=== PATIENT | female | born 1975 | race Caucasian/White ===

== ENCOUNTER 2023-04-12 18:07 | Emergency (ER) | payer BC ==
[2023-04-12] MEDS ORDERED: IBUPROFEN 400 MG TAB ONE (18:54)
[2023-04-12] MEDS ORDERED: ACETAMINOPHEN 325 MG TABLET ONE (18:54)
--- NOTE | 2023-04-12 19:42 | RAD REPORT ---
EXAM DESCRIPTION: US - Extremity Venous Uni Ltd - 04/12/2023 7:35 pm CLINICAL HISTORY: Pain;Swelling Leg swelling and edema. COMPARISON: <Comparisons> FINDINGS: Left lower extremity venous system was interrogated with Doppler technique. Normal flow, c ompressibility and augmentation was noted. There is no DVT present. IMPRESSION: No evidence of left lower extremity deep venous thrombosis.
--- NOTE | 2023-04-12 20:45 | EDPHYS ---
Physician Documentation [facility] Name: Jesusita Davidson Age: 47 yrs Sex: Female : 1975 Arrival Date: 04/12/2023 Time: 18:07 Bed DIS3 Private MD: Prem [facility] ED Physician Shiva Perez HPI: 04/12 18:45 This 47 yrs old Female presents to ER via Ambulatory with complaints of Leg Pain, Leg cp Swelling. 18:45 The patient presents with pain, that is acute. The complaints affect the left calf. cp Context: resulted from an unknown cause, the patient can fully bear weight, the patient is able to ambulate, with mild difficulty, Problem is a result from a previous injury: No. Onset: The symptoms/episode began/occurred last night. Associated signs and symptoms: Pertinent positives: calf tenderness, swelling, Pertinent negatives fever, shortness of breath, fever. Severity of symptoms: in the emergency department the symptoms are unchanged, despite home interventions. 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 - Social history:: Smoking status: Patient denies any tobacco usage or history of. ROS: 18:50 Constitutional: Negative for body aches, chills, fever, poor PO intake. cp 18:50 Eyes: Negative for injury, pain, redness, and discharge. cp 18:50 ENT: Negative for drainage from ear(s), ear pain, sore throat, difficulty swallowing, difficulty handling secretions. 18:50 Cardiovascular: Negative for chest pain, edema, palpitations. 18:50 Respiratory: Negative for cough, shortness of breath, wheezing. 18:50 Abdomen/GI: Negative for abdominal pain, nausea, vomiting, and diarrhea. 18:50 MS/extremity: Positive for pain, tenderness, of the left calf, Negative for injury or acute deformity, paresthesias. 18:50 Skin: Negative for rash. 18:50 All other systems are negative. Exam: 19:00 Head/Face: Normocephalic, atraumatic. 19:00 Constitutional: The patient appears in no acute distress, alert, awake, non-diaphoretic, non-toxic, well developed, well nourished. 19:00 Eyes: Periorbital structures: appear normal, Conjunctiva: normal, no exudate, no injection, Sclera: no appreciated abnormality, Lids and lashes: appear normal, bilaterally. 19:00 Chest/axilla: Inspection: normal. 19:00 Cardiovascular: Rate: normal, Rhythm: regular, Edema: is not appreciated, JVD: is not appreciated. 19:00 Respiratory: the patient does not display signs of respiratory distress, Respirations: normal, no use of accessory muscles, no retractions, labored breathing, is not present, Breath sounds: are clear throughout, no decreased breath sounds, no stridor, no wheezing. 19:00 Musculoskeletal/extremity: Extremities: grossly normal except: noted in the left calf: pain, tenderness, mild swelling, There is no evidence of ecchymosis, erythema, Perfusion: the extremity is normally perfused throughout, Sensation intact. 19:00 Back: pain, is absent, ROM is normal. Vital Signs: 18:29 BP 135 / 82; Pulse 79; Resp 18; Temp 98.7(O); Pulse Ox 100% ; Weight 127.01 kg; Height nj1 5 ft. 10 in. ; Pain 4/10; 20:42 BP 153 / 67; Pulse 74; Resp 18; Pain 4/10; nj1 18:29 Body Mass Index 40.18 (127.01 kg, 177.8 cm) nj1 18:29 Pain Scale: Adult nj1 20:42 Pain Scale: Adult nj1 MDM: 18:51 Patient medically screened. cp 19:00 Differential diagnosis: strain, DVT, tendonitis. 20:44 Data reviewed: vital signs, nurses notes, radiologic studies, ultrasound. 20:44 I considered the following discharge prescriptions or medication management in the emergency department Medications were administered in the Emergency Department. See MAR. Counseling: I had a detailed discussion with the patient and/or guardian regarding: the historical points, exam findings, and any diagnostic results supporting the discharge/admit diagnosis, the need for outpatient follow up, a family practitioner, to return to the emergency department if symptoms worsen or persist or if there are any questions or concerns that arise at home. Response to treatment: the patient's symptoms have markedly improved after treatment, and as a result, I will discharge patient. 04/12 18:37 Order name: US Extremity Venous Unilateral Ltd; Complete Time: 19:55 cp 04/12 19:55 Interpretation: Report reviewed. cp Administered Medications: 18:45 Drug: Acetaminophen PO 650 mg Route: PO; nj1 19:44 Follow up: Response: No adverse reaction nj1 18:46 Drug: Ibuprofen PO 800 mg Route: PO; nj1 19:45 Follow up: Response: No adverse reaction nj1 Disposition Summary: 04/12/23 20:45 Discharge Ordered Location: Home cp Problem: new cp Symptoms: have improved cp Condition: Stable cp Diagnosis - Pain in left lower leg cp Followup: cp - With: Private Physician - When: 5 - 6 days - Reason: pain continues Discharge Instructions: - Discharge Summary Sheet cp - Elastic Bandage and RICE Therapy cp - Musculoskeletal Pain cp Forms: - Medication Reconciliation Form cp - Thank You Letter cp - Antibiotic Education cp - Prescription Opioid Use cp - Patient Portal Instructions cp - Leadership Thank You Letter cp Prescriptions: - Cyclobenzaprine 10 mg Oral Tablet - take 1 tablet by ORAL route every 8 hours As needed; 20 tablet; Refills: 0, cp Product Selection Permitted - Diclofenac Sodium 75 mg Oral Tablet Sustained Release - take 1 tablet by ORAL route 2 times per day; 30 tablet; Refills: 0, Product cp Selection Permitted Signatures: Dispatcher [employer] EDRamin Galicia PA PA cp Jaco, Norma RN RN nj1
--- NOTE | 2023-04-12 20:45 | ER ---
Nurse's Notes [facility] Name: Jesusita Davidson Age: 47 yrs Sex: Female : 1975 Arrival Date: 04/12/2023 Time: 18:07 Bed DIS3 Private MD: Javon Amaro Diagnosis: Pain in left lower leg Presentation: 04/12 18:29 Chief complaint: Patient states: Left calf pain since last night, concerned about a nj1 blood clot. Foot swelling, on/off over the past few days. Coronavirus screen: Vaccine status: Patient reports receiving the 2nd dose of the covid vaccine. Ebola Screen: Patient denies travel to an Ebola-affected area in the 21 days before illness onset. Initial Sepsis Screen: Does the patient meet any 2 criteria? No. Patient's initial sepsis screen is negative. Does the patient have a suspected source of infection? No. Patient's initial sepsis screen is negative. Risk Assessment: Do you want to hurt yourself or someone else? Patient reports no desire to harm self or others. Onset of symptoms was April 11, 2023. 18:29 Method Of Arrival: Ambulatory banner 18:29 Acuity: [facility] 4 banner Triage Assessment: 18:38 General: Appears in no apparent distress. comfortable, Behavior is calm, cooperative, nj appropriate for age. Pain: Complains of pain in left calf Pain currently is 4 out of 10 on a pain scale. Aggravated by increased activity, weight bearing. Neuro: Level of Consciousness is awake, alert, obeys commands, Oriented to person, place, time, situation. Cardiovascular: Patient's skin is warm and dry. Respiratory: Airway is patent Respiratory effort is even, unlabored. Musculoskeletal: Swelling absent Reports pain in left calf since last night. [employer]: 18:39 LMP 04/10/2023 banner Historical: - Allergies: 18:35 PENICILLINS; nj1 - PMHx: 18:35 Hypertensive disorder; Hypercholesterolemia; Anxiety; Depressive disorder; nj1 - PSHx: 18:35 Gastric bypass; Cholecystectomy; nj1 - Immunization history:: Client reports receiving the 2nd dose of the Covid vaccine. - Social history:: Smoking status: Patient denies any tobacco usage or history of. Screenin:40 [facility] ED Fall Risk Assessment (Adult) Score/Fall Risk Level 0 - 2 = Low Risk nj1 Oriented to surroundings, Maintained a safe environment. Abuse screen: Denies threats or abuse. Denies injuries from another. Nutritional screening: No deficits noted. Tuberculosis screening: No symptoms or risk factors identified. Assessment: 19:56 Reassessment: Patient appears in no apparent distress at this time. Patient and/or nj1 family updated on plan of care and expected duration. Pain level reassessed. Patient is alert, oriented x 3, equal unlabored respirations, skin warm/dry/pink. Patient states feeling better. 20:56 Reassessment: Patient appears in no apparent distress at this time. Patient and/or nj1 family updated on plan of care and expected duration. Pain level reassessed. Patient is alert, oriented x 3, equal unlabored respirations, skin warm/dry/pink. Vital Signs: 18:29 BP 135 / 82; Pulse 79; Resp 18; Temp 98.7(O); Pulse Ox 100% ; Weight 127.01 kg; Height nj1 5 ft. 10 in. ; Pain 4/10; 20:42 BP 153 / 67; Pulse 74; Resp 18; Pain 4/10; nj1 18:29 Body Mass Index 40.18 (127.01 kg, 177.8 cm) nj1 18:29 Pain Scale: Adult nj1 20:42 Pain Scale: Adult banner ED Course: 18:11 Patient arrived in ED. mr 18:11 Javon Amaro DO is Private Physician. mr 18:15 Ramin Guevara [facility] cp 18:15 Shiva Perez MD is Attending Physician. cp 18:34 Triage completed. nj1 18:38 Arm band placed on right wrist. nj1 18:40 Patient has correct armband on for positive identification. nj1 18:40 Provided Education on: How to get help if needed.. nj1 19:37 US Extremity Venous Unilateral Ltd In Process Unspecified. EDMS 20:56 No provider procedures requiring assistance completed. Patient did not have IV access nj1 during this emergency room visit. Administered Medications: 18:45 Drug: Acetaminophen PO 650 mg Route: PO; nj1 19:44 Follow up: Response: No adverse reaction nj1 18:46 Drug: Ibuprofen PO 800 mg Route: PO; nj1 19:45 Follow up: Response: No adverse reaction nj1 Medication: 20:57 VIS not applicable for this client. nj1 Outcome: 20:45 Discharge ordered by . cp 20:56 Discharged to home ambulatory, with family. nj1 20:56 Condition: stable 20:56 Discharge instructions given to patient, Instructed on discharge instructions, follow up and referral plans. medication usage, Demonstrated understanding of instructions, follow-up care, medications, Prescriptions given X 2. 20:57 Patient left the ED. nj1 Signatures: Dispatcher [employer] EDMS Julia Garcia mr Ramin Guevara, PA PA Maggie Newton, RN RN nj1
[2023-04-12 21:22] VITALS: TEMP 98.7; O2SAT 100
[2023-04-12 21:23] VITALS: BP 153/67
== END 2023-04-12 20:57 | disposition home or self-care (01) ==
LOC: ER 18:07
DX: M79.662 Pain in left lower leg (principal); Z88.0 Allergy status to penicillin
CPT/HCPCS: 93971; 99283

== ENCOUNTER → 2025-04-09 | Day surgery (SDC) | payer BC ==
--- NOTE | 2025-04-08 08:24 | RAD REPORT ---
EXAMINATION: TWO VIEW CHEST XR CLINICAL INDICATION: Pre-op pending colonoscopy TECHNIQUE: 2 views of the chest was performed. COMPARISON: No prior exam. FINDINGS: The lungs are well inflated and clear. The heart is upper limit of normal in size. No displaced fract ures evident. IMPRESSION: No acute or significant abnormalities.
[2025-04-08 09:16] LABS: Absolute Lymphocytes (CBC) 1.8 K/uL (0.7-4.9); Hematocrit 39.9 % (36.0-45.0); Hemoglobin 13.5 g/dL (12.0-15.0); MCH 31.7 pg (27.0-35.0); MCHC 33.7 g/dL (32.0-36.0); MCV 93.9 fL (80-100); MPV 9.1 fL (7.6-11.3); Nucleated RBC Absolute Count 0.0 (0-0); Nucleated Red Blood Cells % 0.1 % (0-0); RBC Red Blood Cell Count 4.25 M/uL (3.86-4.86); White Blood Count 6.80 thou/uL (4.3-10.9)
[2025-04-08 09:31] LABS: Anion Gap 8.4 mEq/L (5.0-15.0); BUN Blood Urea Nitrogen 9.0 mg/dL (7-18); Glucose Level 92.0 mg/dL (74-106); Potassium 4.4 mEq/L (3.5-5.1)
[~2025-04-09] MED LIST: LIDOCAINE 2% ONE
[2025-04-09 10:36] VITALS: TEMP 97.1
[2025-04-09 10:45] VITALS: BP 124/72; O2SAT 99
== END ==
LOC: OR 07:40
PROVIDERS: ATTEND Surgery
PROC: 0DJD8ZZ Inspection of Lower Intestinal Tract, Via Natural or Artificial Opening Endoscopic (ICD-10-PCS; principal; 2025-04-09 08:30)
DX: Z12.11 Encounter for screening for malignant neoplasm of colon (principal); K57.30 Diverticulosis of large intestine without perforation or abscess without bleeding; Z86.0100 Personal history of colon polyps, unspecified
CPT/HCPCS: 93005; 85025; 80048; 36415; 71046; 45378; J2704